=== PATIENT | female | born 1950 | race Caucasian/White ===

== ENCOUNTER 2018-02-22 19:14 | Emergency (ER) | payer OTHER | END 2018-02-22 20:24 | disposition home or self-care (01) | LOC: M ED 19:14 | DX: H43.391 Other vitreous opacities, right eye (principal); I10 Essential (primary) hypertension; K21.9 Gastro-esophageal reflux disease without esophagitis; F33.9 Major depressive disorder, recurrent, unspecified | CPT/HCPCS: 99282 ==